=== PATIENT | male | born 1980 | race Caucasian/White ===

== ENCOUNTER 2016-07-10 20:14 | Inpatient (IN) | payer BC, OTHER ==
[~2016-07-10] VITALS: Ht 175.3 cm; Wt 61.2 kg
[~2016-07-10 20:14] MED LIST: DICY20TA28 PO; DIPH50CA37 PO; Gabapentin PO; HYDR-3895 PO
[2016-07-10 20:54] VITALS: BP 125/86
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
[2016-07-10] MEDS ORDERED: MIRALAX 17 GM POWD.PACK PO PRN (22:15)
[2016-07-10] MEDS ORDERED: LORAZEPAM 2 MG/1 ML VIAL IM PRN (22:15)
[2016-07-10] MEDS ORDERED: ONDANSETRON ODT 4 MG TAB.RAPDIS SL PRN (22:15)
[2016-07-10] MEDS ORDERED: MAGNESIUM HYDROXIDE 30 ML LIQUID UDC PO PRN (22:15)
[2016-07-10] MEDS ORDERED: HYDROXYZINE PAMOATE 25 MG CAPSULE PO PRN (22:15)
[2016-07-10] MEDS ORDERED: CLONIDINE HCL 0.1 MG TABLET PO PRN (22:15)
[2016-07-10] MEDS ORDERED: LOPERAMIDE HCL 2 MG CAPSULE PO PRN ×2 (22:15)
[2016-07-10] MEDS ORDERED: PROMETHAZINE HCL 25 MG/1 ML VIAL IM PRN (22:15)
[2016-07-10] MEDS ORDERED: THIAMINE HCL 200 MG/2 ML VIAL IM ONE (22:15)
[2016-07-10] MEDS ORDERED: MAG HYDROX/AL HYDROX/SIMETH 30 ML LIQUID UDC PO PRN (22:15)
[2016-07-10] MEDS ORDERED: ACETAMINOPHEN 325 MG TABLET PO PRN (22:15)
[2016-07-10] MEDS ORDERED: IBUPROFEN 600 MG TABLET PO PRN (22:15)
[2016-07-10] MEDS ORDERED: LORAZEPAM 1 MG TABLET PO PRN (22:15)
[2016-07-10] MEDS ORDERED: diphenhydrAMINE 50 MG CAPSULE PO PRN (22:15)
[2016-07-10] MEDS ORDERED: DICYCLOMINE HCL 20 MG TABLET PO PRN (22:15)
[2016-07-10] MEDS ORDERED: THIAMINE HCL 200 MG/2 ML VIAL ONE (22:26)
[2016-07-10] MEDS: LORAZEPAM 1 MG TABLET PO PRN (22:29)
--- NOTE | 2016-07-10 22:29 | NUR ---
PRN ATIVAN/B1 INJ ADMINISTRATION PATIENT C/O ANXIETY, IRRITABILITY, MILD AGITATION, SWEATING, CHILLS. RESTLESSNESS . CIWA 8. ATIVAN GIVEN AND B1 INJ GIVEN ON LEFT DELTOID. WILL MONITOR FOR EFFECTIVENESS
[2016-07-10] MEDS ORDERED: LORAZEPAM 1 MG TABLET ONE (22:36)
[2016-07-10 23:12] LABS: *AMPHETAMINE, URINE POSITIVE (NEGATIVE); *BARBITURATE, URINE NEGATIVE (NEGATIVE); *CANNABINOID, URINE POSITIVE (NEGATIVE); *COCCAINE, URINE NEGATIVE (NEGATIVE); *OPIATE, URINE POSITIVE (NEGATIVE); *PHENCYCLIDINE SCREEN,URINE NEGATIVE (NEGATIVE)
[2016-07-10 23:24] LABS: BASOPHILS # (AUTO) 0.1 K/uL (0.0-0.2); BASOPHILS % (AUTO) 1.2 % (0.0-2.0); EOSINOPHILS # (AUTO) 0.3 K/uL (0.0-0.7); EOSINOPHILS % (AUTO) 3.5 % (0.0-7.0); HEMATOCRIT 41.5 % (40.0-50.0); HEMOGLOBIN 14.6 g/dL (14.0-18.0); LYMPHOCYTES # (AUTO) 2.5 K/uL (0.8-4.8); LYMPHOCYTES % (AUTO) 31.7 % (20.5-51.5); MEAN CORPUSCULAR HEMOGLOBIN 31.4 uug (27.0-31.0); MEAN CORPUSCULAR HGB CONC 35 g/dL (32.0-37.0); MONOCYTES # (AUTO) 0.5 K/uL (0.1-1.30); MONOCYTES % (AUTO) 5.9 % (0.0-11.0); NEUTROPHILS # (AUTO) 4.4 K/uL (1.8-8.9); NEUTROPHILS % (AUTO) 57.7 % (38.5-71.5); PLATELET COUNT (AUTO) 211 K/uL (150-450); RED BLOOD CELL COUNT(AUTO) 4.67 MIL/uL (4.70-6.10); RED CELL DISTRIBUTION WIDTH 12.5 % (11.5-14.5); WHITE BLOOD COUNT (AUTO) 7.8 K/uL (4.0-11.2)
--- NOTE | 2016-07-10 23:29 | NUR ---
ATIVAN RE-ASSESSMENT PATIENT STATES ATIVAN HELPFUL AND EFFECTIVE. PATIENT ANXIETY SUBSIDED. WILL CONTINUE TO MONITOR.
[2016-07-10 23:31] LABS: ALBUMIN 3.8 g/dL (3.4-5.0); BILIRUBIN,TOTAL 0.9 mg/dL (0.2-1.0); CALCIUM 7.9 mg/dL (8.5-10.1); CREATININE 0.8 mg/dL (0.6-1.3); MAGNESIUM 1.7 mg/dL (1.8-2.4); POTASSIUM 3.2 mmol/L (3.5-5.1); TOTAL PROTEIN, SERUM 7.5 g/dL (6.4-8.2)
[2016-07-10 23:42] LABS: THYROID STIMULATING HORMONE 1.063 mIU/mL (0.358-3.740)
[2016-07-11] VITALS: BP 125/74
[2016-07-11 00:12] LABS: HIV-1 p24 ANTIGEN NON REACTIVE (NONREACTIVE); HIV-1/2 ANTIBODY NON REACTIVE (NONREACTIVE)
--- NOTE | 2016-07-11 00:15 | NUR ---
MAG OX AND POTASSIUM CHLORIDE REFUSED PATIENT'S MAGNESIUM LEVEL 1.7 AND POTASSIUM CHLORIDE 3.3. PATIENT REFUSED TO TAKE MAG OX AND POTASSIUM CHLORIDE. EDUCATE RISKS/BENEFITS . STILL REFUSED. Addendum: 07/11/16 at 0549 by BRITTNEY LEWIS LVN POTASSIUM LEVEL 3.2
[2016-07-11] MEDS ORDERED: POTASSIUM CHLORIDE 20 MEQ TAB.PRT.SR ONE (00:19)
[2016-07-11] MEDS ORDERED: MAGNESIUM OXIDE 400 MG TABLET ONE (00:20)
[2016-07-11] MEDS: POTASSIUM CHLORIDE 20 MEQ TAB.PRT.SR PO ONE ×2 (00:25→00:31)
[2016-07-11] MEDS: MAGNESIUM OXIDE 400 MG TABLET PO ONE ×2 (00:25→00:31)
[2016-07-11 04:00] VITALS: BP 124/82
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
--- NOTE | 2016-07-11 07:35 | NUR ---
Start of shift Endorsement received from nightshift nurse. Pt is a 35 y/o male admitted for Heroin, alcohol and Xanax dependence. Pt has been placed under observation and symptoms are being treated by PRN medications.. Pt is mildly withdrawing AEB CIWA 1. Pt received PRN Ativan. Pt reports sleeping 6 hours . VS WNL, Full Code. PT is alert and oriented x4. Pt is in STABLE condition at this time. Remains compliant with medication and diet regimen. All needs have been met, All safety measures in place per hospital policy. Bed in lowest position, side rails up x2, call-light within reach. Will continue to monitor
[2016-07-11] MEDS ORDERED: POTASSIUM CHLORIDE 20 MEQ TAB.PRT.SR PO ONE (08:00)
[2016-07-11] MEDS ORDERED: MAGNESIUM OXIDE 400 MG TABLET PO ONE (08:00)
[2016-07-11] MEDS: THIAMINE HCL 100 MG TABLET PO SCH (08:56)
[2016-07-11] MEDS: FOLIC ACID 1 MG TABLET PO SCH (08:56)
[2016-07-11] MEDS: GABAPENTIN 300 MG CAPSULE PO SCH ×3 (08:56→20:47)
[2016-07-11] MEDS: MULTIVITAMINS,THERAPEUTIC TABLET PO SCH (08:56)
[2016-07-11] MEDS ORDERED: PNEUMOCOCCAL 23-VAL P-SAC VAC 0.5 ML VIAL IM ONE (09:00)
[2016-07-11] MEDS ORDERED: TUBERCULIN,PURIF.PROT.DERIV. 5 TU/0.1 ML TEST ID ONE (09:00)
[2016-07-11] MEDS ORDERED: INFLUENZA VACCINE 0.5 ML DISP.SYRIN IM ONE (09:00)
[2016-07-11 09:04] VITALS: BP 116/74
[2016-07-11] MEDS: LORAZEPAM 1 MG TABLET PO PRN (09:05)
--- NOTE | 2016-07-11 09:05 | NUR ---
PRN Medications Administered PNR Ativan 1mg for CIWA 12 per MD orders and Zofran for nausea reported by pt.
--- NOTE | 2016-07-11 10:00 | NUR ---
Medication re-assessment Medications were effective, pt reports relief from anxiety and nausea.
[2016-07-11 12:00] VITALS: BP 128/87
[2016-07-11] MEDS ORDERED: LORAZEPAM 1 MG TABLET PO PRN ×2 (14:30)
[2016-07-11 16:00] VITALS: BP 122/81
--- NOTE | 2016-07-11 19:00 | NUR ---
End of Shift Endorsement given to nightshift nurse. Pt is a 35 y/o male admitted for Heroin, alcohol and Xanax dependence. Pt has been placed under observation and symptoms are being treated by PRN medications.. Pt is mildly withdrawing AEB CIWA 7. Pt received PRN Ativan at 0905 for CIWA 12 as well as Zofran for nausea. Pt participated in groups and activities. Intake: 1791, void x3, BM x0. . VS WNL, Full Code. PT is alert and oriented x4. Pt is in STABLE condition at this time. Remains compliant with medication and diet regimen. All needs have been met, All safety measures in place per hospital policy. Bed in lowest position, side rails up x2, call-light within reach. Will continue to monitor
[2016-07-11 20:00] VITALS: BP 124/80
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
--- NOTE | 2016-07-11 20:48 | NUR ---
PRN ATIVAN ADMINISTRATION PATIENT C/O ANXIETY, SWEATING, CHILLS, TREMORS, OBSERVED WITH FLUSHED FACE, IRRITABILITY AND MILD AGITATION . CIWA 10. PRN ATIVAN GIVEN. WILL MONITOR FOR EFFECTIVENESS
--- NOTE | 2016-07-11 21:48 | NUR ---
LADONNA ATIVAN RE-ASSESSMENT PATIENT STATES ATIVAN HELPFUL AND EFFECTIVE. WILL CONTINUE TO MONITOR. Addendum: 07/12/16 at 0536 by BRITTNEY LEWIS LVN IRAIDA Heath
--- NOTE | 2016-07-12 | NUR ---
VS/CIWA REFUSED PATIENT REFUSED VS . UNABLE TO COMPLETE CIWA ASSESSMENT. RESPIRATION EVEN AND UNLABORED. RR 15. SAFETY MEASURES IN PLACE. CALL LIGHT IN REACH. WILL CONTINUE TO MONITOR.
--- NOTE | 2016-07-12 04:00 | NUR ---
VS/CIWA REFUSED PATIENT REFUSED VS . UNABLE TO COMPLETE CIWA ASSESSMENT. RESPIRATION EVEN AND UNLABORED. RR 14. NO S/S OF DISTRESS. SAFETY MEASURES IN PLACE. CALL LIGHT IN REACH. WILL CONTINUE TO MONITOR.
--- NOTE | 2016-07-12 07:05 | NUR ---
Start of shift Endorsement received from nightshift nurse. Pt is a 35 y/o male admitted for Heroin, alcohol and Xanax dependence. Pt has been placed under observation and symptoms are being treated by PRN medications.. Pt is mildly withdrawing AEB CIWA 1. Pt received PRN Ativan. Pt reports sleeping 7 hours . VS WNL, Full Code. PT is alert and oriented x4. Pt is in STABLE condition at this time. Remains compliant with medication and diet regimen. All needs have been met, All safety measures in place per hospital policy. Bed in lowest position, side rails up x2, call-light within reach. Will continue to monitor
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
[2016-07-12 08:05] VITALS: BP 102/69
[2016-07-12] MEDS: MULTIVITAMINS,THERAPEUTIC TABLET PO SCH (08:48)
[2016-07-12] MEDS: FOLIC ACID 1 MG TABLET PO SCH (08:48)
[2016-07-12] MEDS: GABAPENTIN 300 MG CAPSULE PO SCH ×3 (08:48→20:49)
[2016-07-12] MEDS: THIAMINE HCL 100 MG TABLET PO SCH (08:48)
[2016-07-12 09:29] LABS: CALCIUM 8.3 mg/dL (8.5-10.1); CREATININE 0.9 mg/dL (0.6-1.3); MAGNESIUM 1.8 mg/dL (1.8-2.4); POTASSIUM 4.8 mmol/L (3.5-5.1)
--- NOTE | 2016-07-12 10:18 | NUR ---
AMY AND I TESTING PCS
[2016-07-12 11:39] LABS: HCV AB >11.0 s/co ratio (0.0-0.9); HEPATITIS B CORE AB, IgM Negative (Negative); HEPATITIS B SURFACE AG Negative (Negative)
[2016-07-12 12:00] VITALS: BP 105/62
[2016-07-12 16:00] VITALS: BP 127/87
--- NOTE | 2016-07-12 19:20 | NUR ---
End of Shift Endorsement given to nightshift nurse. Pt is a 35 y/o male admitted for Heroin, alcohol and Xanax dependence. Pt has been placed under observation and symptoms are being treated by PRN medications.. Pt is mildly withdrawing AEB CIWA 1. Pt did not receive any PRN medications. Pt is expected to be discharged on 07/13/16. All documentation has been completed. Pt participated in groups and activities. Intake: 1966, void x4, BM x0. . VS WNL, Full Code. PT is alert and oriented x4. Pt is in STABLE condition at this time. Remains compliant with medication and diet regimen. All needs have been met, All safety measures in place per hospital policy. Bed in lowest position, side rails up x2, call-light within reach. Will continue to monitor
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
[2016-07-12 20:58] VITALS: BP 125/86
--- NOTE | 2016-07-13 | NUR ---
Vitals/CIWA deferred Patient refused vitals at this time. Patient asleep in bed. No shortness of breath noted. Respiration even & unlabored. Safety precautions are in place. Will continue to monitor.
[2016-07-13] MEDS ORDERED: HYDR-3895 PO (00:18)
[2016-07-13] MEDS ORDERED: DIPH50CA37 PO (00:18)
[2016-07-13] MEDS ORDERED: DICY20TA28 PO (00:18)
[2016-07-13] MEDS ORDERED: Gabapentin PO (00:18)
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
--- NOTE | 2016-07-13 07:30 | NUR ---
START OF SHIFT NOTE: Received report from night court magistrate nurse. Patient is a 35 y.o male admitted on 07/10/16 for Heroin/Alcohol & Xanax dependence. Pt to be discharged this AM. Pt is alert and oriented X4. Color good, skin warm and dry. Respirations even and unlabored. Pt resting in bed at this time. Safety precautions observed. Call light within reach.
[2016-07-13] MEDS: FOLIC ACID 1 MG TABLET PO SCH (08:23)
[2016-07-13] MEDS: MULTIVITAMINS,THERAPEUTIC TABLET PO SCH (08:23)
[2016-07-13] MEDS: GABAPENTIN 300 MG CAPSULE PO SCH (08:23)
[2016-07-13] MEDS: THIAMINE HCL 100 MG TABLET PO SCH (08:23)
--- NOTE | 2016-07-13 08:30 | NUR ---
VSS Discharge papers signed. No home meds
[2016-07-13 09:08] LABS: *AMPHETAMINE, URINE POSITIVE (NEGATIVE); *BARBITURATE, URINE NEGATIVE (NEGATIVE); *CANNABINOID, URINE NEGATIVE (NEGATIVE); *COCCAINE, URINE NEGATIVE (NEGATIVE); *OPIATE, URINE NEGATIVE (NEGATIVE); *PHENCYCLIDINE SCREEN,URINE NEGATIVE (NEGATIVE)
[2016-07-13 09:18] LABS: VIT D, 25-HYDROXY 42.3 ng/mL (30.0-100.0)
--- NOTE | 2016-07-13 09:35 | NUR ---
Pt discharged in stable condition with all valuables and belongings. No home meds. Pt denies SI/HI. To [employer] [facility] [employer] private car.
== END 2016-07-13 09:35 | disposition other institution (70) | DRG 895 ==
LOC: SRC 20:36
PROVIDERS: ADMIT Internal Medicine; ATTEND Internal Medicine
PROC: HZ2ZZZZ Detoxification Services for Substance Abuse Treatment (ICD-10-PCS; principal; 2016-07-10)
PROC: HZ41ZZZ Group Counseling for Substance Abuse Treatment, Behavioral (ICD-10-PCS; 2016-07-11)
DX: F10.220 Alcohol dependence with intoxication, uncomplicated (principal); F13.20 Sedative, hypnotic or anxiolytic dependence, uncomplicated; F10.230 Alcohol dependence with withdrawal, uncomplicated; F11.23 Opioid dependence with withdrawal; Y90.2 Blood alcohol level of 40-59 mg/100 ml; E87.6 Hypokalemia; E83.51 Hypocalcemia; E83.42 Hypomagnesemia; F17.200 Nicotine dependence, unspecified, uncomplicated; F41.9 Anxiety disorder, unspecified; F15.229 Other stimulant dependence with intoxication, unspecified; F12.90 Cannabis use, unspecified, uncomplicated; B19.20 Unspecified viral hepatitis C without hepatic coma; Z86.69 Personal history of other diseases of the nervous system and sense organs
CPT/HCPCS: 36415; 70030-TC; 71010; 80307; 80324; 80349; 80361; 82306; 82330; 83690; 83735; 84443; 85025; 86592; 86705; 86803; 87340; 87521; 87806; A4663; G6040-TC; J3411; Q0162

== ENCOUNTER 2016-09-27 16:27 | Inpatient (IN) | payer BC, OTHER ==
[~2016-09-27] VITALS: Ht 175.3 cm; Wt 62.6 kg
[2016-09-28] MEDS ORDERED: MAGNESIUM HYDROXIDE 30 ML LIQUID UDC PO PRN (13:30)
[2016-09-28] MEDS ORDERED: MIRALAX 17 GM POWD.PACK PO PRN (13:30)
[2016-09-28] MEDS ORDERED: IBUPROFEN 600 MG TABLET PO PRN (13:30)
[2016-09-28] MEDS ORDERED: MAG HYDROX/AL HYDROX/SIMETH 30 ML LIQUID UDC PO PRN (13:30)
[2016-09-28] MEDS ORDERED: METHOCARBAMOL 750 MG TABLET PO PRN (13:30)
[2016-09-28] MEDS ORDERED: DICYCLOMINE HCL 20 MG TABLET PO PRN (13:30)
[2016-09-28] MEDS ORDERED: ONDANSETRON 4 MG/2 ML VIAL IM PRN (13:30)
[2016-09-28] MEDS ORDERED: LOPERAMIDE HCL 2 MG CAPSULE PO PRN ×2 (13:30)
[2016-09-28] MEDS ORDERED: HYDROXYZINE PAMOATE 25 MG CAPSULE PO PRN (13:30)
[2016-09-28] MEDS ORDERED: ACETAMINOPHEN 325 MG TABLET PO PRN (13:30)
[2016-09-28] MEDS ORDERED: CLONIDINE HCL 0.1 MG TABLET PO PRN (13:30)
[2016-09-28] MEDS ORDERED: LORAZEPAM 2 MG/1 ML VIAL IM PRN (13:30)
[2016-09-28] MEDS ORDERED: THIAMINE HCL 200 MG/2 ML VIAL IM ONE (13:30)
[2016-09-28] MEDS ORDERED: diphenhydrAMINE 50 MG CAPSULE PO PRN (13:30)
[2016-09-28] MEDS ORDERED: LORAZEPAM 1 MG TABLET PO PRN ×2 (13:30)
[2016-09-28] MEDS ORDERED: ONDANSETRON ODT 4 MG TAB.RAPDIS SL PRN (13:30)
[2016-09-28] MEDS ORDERED: BUPRENORPHINE HCL 2 MG TAB.SUBL SL PRN (13:30)
--- NOTE | 2016-09-28 14:15 | NUR ---
PREADMISSION ASSESSMENT Intake interview done at 1400. Reviewed patients substance history and medical history. Patient is alert and orientated but occasionally would close his eyes during assessment. Unit rules were explained to the patient. Will continue the admission process when the patient arrives on unit.
[2016-09-28 14:19] VITALS: BP 111/76
[2016-09-28] MEDS: GABAPENTIN 300 MG CAPSULE PO SCH ×2 (15:00→21:10)
[2016-09-28 15:30] LABS: ALANINE AMINOTRANSFERASE 46 U/L (16-63); ALKALINE PHOSPHATASE 62 U/L (50-136); ASPARTATE AMINOTRANSFERASE 24 U/L (15-37); BILIRUBIN,TOTAL 1.5 mg/dL (0.2-1.0); CARBON DIOXIDE 31 mmol/L (21-32); CHLORIDE 101 mmol/L (98-107); GLUCOSE 101 mg/dL (74-106); MAGNESIUM 2.1 mg/dL (1.8-2.4); POTASSIUM 4.2 mmol/L (3.5-5.1); TOTAL PROTEIN, SERUM 8.2 g/dL (6.4-8.2); UREA NITROGEN, BLOOD 11 mg/dL (7-18)
[2016-09-28 15:43] LABS: THYROID STIMULATING HORMONE 0.732 mIU/mL (0.358-3.740)
--- NOTE | 2016-09-28 15:55 | NUR ---
ADMISSION NOTE Patient is a 36 year old male admitted to [facility] on 09/28/16 at 1425. pat is under [facility] of Dr. Zavala for opiate and benzo dependence. Pt denies suicidal and homicidal ideations at this time. Pt was hospitalized last month here at [facility]. pt denies chest pain and SOB. pt reports using Heroin, Methamphetamine, and xanax. upon assessment pt's skin is intact. CIWA 3 and COWS 7upon admission. Patient is allergic to tomatoes. pt is alert and orientated but closes eyes occasionally. Able to answer questions necessary for the admission process. pt is full code. VS WNL, regular diet. patient denies having seizures in the past. pt denies having a PCP. Breathing is even and unlabored, Spo2 100%, RA. pt states bowel habits are normal. Pt's gait is steady. Pt smokes approximately [address] Zavala has been notified, and has placed client under observation. all needs have been met. pt has been orientated to the room and the unit. All safety measures in place per hospital policy. Bed in lowest postion, side rails up X2, call light within reach. will continue to monitor patient. SUBSTANCE ABUSE -xanax 1.5 bar 3-4 times a week for the past 13 years, last used 09/28/16 -Methamphetamine- 1-2 grams daily for the past 2 years, last used 09/28/16 -Heroin 2 grams daily for the past 10 years, last used 09/28/16
[2016-09-28 15:58] LABS: BASOPHILS # (AUTO) 0.1 K/uL (0.0-8.0); BASOPHILS % (AUTO) 1.6 % (0.0-2.0); EOSINOPHILS # (AUTO) 0.3 K/uL (0.0-0.7); EOSINOPHILS % (AUTO) 3.4 % (0.0-7.0); HEMOGLOBIN 15.6 G/DL (14.0-18.0); LYMPHOCYTES # (AUTO) 3.2 K/UL (0.8-4.8); LYMPHOCYTES % (AUTO) 39.4 % (20.5-51.5); MEAN CORPUSCULAR HGB CONC 35 g/dL (32.0-37.0); MEAN CORPUSCULAR VOLUME 89.2 FL (82.0-92.0); MONOCYTES # (AUTO) 0.9 K/UL (0.1-1.30); MONOCYTES % (AUTO) 11.1 % (0.0-11.0); NEUTROPHILS # (AUTO) 3.7 K/UL (1.8-8.9); NEUTROPHILS % (AUTO) 44.5 % (38.5-71.5); PLATELET COUNT (AUTO) 248 K/UL (150-450); RED BLOOD CELL COUNT(AUTO) 5.05 MIL/UL (4.7-6.1); WHITE BLOOD COUNT (AUTO) 8.2 K/UL (4.0-11.2)
--- NOTE | 2016-09-28 15:59 | NUR ---
PRN Pt states he feels nauseous. Dee james prn per MD order given and tolerated well.
[2016-09-28 16:00] VITALS: BP 115/78
[2016-09-28 16:21] LABS: ETHANOL < 3 MG/DL (0-0)
--- NOTE | 2016-09-28 16:59 | NUR ---
PRN EVAL Pt states nausea has stopped.
--- NOTE | 2016-09-28 19:30 | NUR ---
START OF SHIFT Patient is a 36 year old male admitted to [facility] on 09/28/16, for opiate and benzo dependence. Pt reports using Heroin, Methamphetamine, and xanax. CIWA 3 and COWS 7 upon admission. Patient is allergic to tomatoes. pt is alert and orientated x 3 , is full code, on regular diet. Patient denies having seizures in the past. Breathing is even and unlabored, all needs have been met. All safety measures in place per hospital policy. Bed in lowest position, side rails up X2, call light within reach. will continue to monitor patient.
[2016-09-28 20:00] VITALS: BP 109/76
[2016-09-28] MEDS ORDERED: GABAPENTIN 300 MG CAPSULE PO SCH (21:00)
[2016-09-29] VITALS: BP 130/90
[2016-09-29 04:00] VITALS: BP 120/90
--- NOTE | 2016-09-29 06:44 | NUR ---
END OF SHIFT Patient is a 36 year old male admitted to [facility] on 09/28/16, for opiate and benzo dependence. Pt reports using Heroin, Methamphetamine, and Xanax. Last CIWA=2. Patient is allergic to tomatoes; alert and orientated x 3 , is full code; regular diet. patient denies having seizures in the past. Breathing is even and unlabored, all needs have been met. No PRN meds given last night. Pt slept 9 hrs last night; fluid intake was 355 mls; did not void; still unable to get urine specimen for drug screen. All safety measures in place per hospital policy. Bed in lowest position, side rails up X2, call light within reach. will continue to monitor.
[2016-09-29 08:00] VITALS: BP 138/82
--- NOTE | 2016-09-29 08:00 | NUR ---
START OF SHIFT: RECEIVED PT A/O X 4. HE PROVIDED UDS. HE C/O ANXIETY,BODY ACHES,RUNNY NOSE TEARING EYES ,CHILLS AND SWEATS. COWS 14 CIWA 5. INITIATED 5 DAY SUBUTEX AND ATIVAN TAPER PER MD ORDERS. ENCOURAGED INCREASED FLUIDS TO ASSIST IN FACILITATING DETOX PROCESS. PPD PLANTED TO LFA. ENCOURAGED REST TODAY. WILL CONTINUE TO MONITOR AND PROVIDE SAFE AND SUPPORTIVE ENVIRONMENT.
[2016-09-29] MEDS: THIAMINE HCL 100 MG TABLET PO SCH (08:11)
[2016-09-29] MEDS: GABAPENTIN 300 MG CAPSULE PO SCH ×3 (08:11→20:45)
[2016-09-29] MEDS: LORAZEPAM 1 MG TABLET PO SCH ×4 (08:11→20:45)
[2016-09-29] MEDS: MULTIVITAMINS,THERAPEUTIC TABLET PO SCH (08:11)
[2016-09-29] MEDS: FOLIC ACID 1 MG TABLET PO SCH (08:11)
[2016-09-29] MEDS: DOCUSATE SODIUM 250 MG CAPSULE PO SCH (08:12)
[2016-09-29] MEDS: BUPRENORPHINE HCL 2 MG TAB.SUBL SL SCH ×4 (08:12→20:45)
[2016-09-29 08:46] LABS: *AMPHETAMINE, URINE POSITIVE (NEGATIVE); *BARBITURATE, URINE NEGATIVE (NEGATIVE); *CANNABINOID, URINE NEGATIVE (NEGATIVE); *COCCAINE, URINE POSITIVE (NEGATIVE); *OPIATE, URINE POSITIVE (NEGATIVE); *PHENCYCLIDINE SCREEN,URINE NEGATIVE (NEGATIVE)
[2016-09-29] MEDS ORDERED: 5 DAY TAPER OF LORAZEPAM -SERENITY PROTOCOL PO PRN (09:00)
[2016-09-29] MEDS ORDERED: 5 DAY TAPER BUPRENORPHINE -SERENITY PROTOCOL SL PRN (09:00)
[2016-09-29] MEDS ORDERED: TUBERCULIN,PURIF.PROT.DERIV. 5 TU/0.1 ML TEST ID ONE (09:00)
[2016-09-29 12:00] VITALS: BP 100/60
--- NOTE | 2016-09-29 14:00 | NUR ---
1200 COWS AND CIWA DEFERRED PT IS ASLEEP. HELD 1300 MEDS FOR SAME REASON. RESPIRATIONS EVEN AND UNLABORED. CALL HOOD IN REACH. BED LOCKED AND IN LOWEST POSITION. WILL CONTINUE TO MONITOR.
[2016-09-29 16:00] VITALS: BP 138/82
--- NOTE | 2016-09-29 18:49 | NUR ---
END OF SHIFT: PT STARTED ON ATIVAN SUBUTEX TAPER. PT C/O BODY ACHES,CHILLS,RUNNY NOSE, SWEATS,ANXIETY AND FATIGUE THIS AM AND DETOX MEDS WERE EFFECTIVE.LAST COWS 8 CIWA 5. PPD PLANTED TO LFA. HE SLEPT THIS AFTERNOON AND 1300 MEDS HELD. 1300 COWS AND CIWA DEFERRED. PT REQUESTED AN EXTRA DOSE OF SUBUTEX AFTER HIS 1700 DOSE AND STATED THAT THE DOSE WAS NOT EFFECTIVE. MD DENIED REQUEST. PRN MOTRIN AND PRN ROBAXIN GIVEN AT END OF SHIFT.WILL ENDORSE EFFECTIVENESS TO NIGHT NURSE. WILL PASS ON SHIFT REPORT.
--- NOTE | 2016-09-29 19:15 | NUR ---
START OF SHIFT Received 36 year old male patient admitted on 09/28/16 for Xanax, Heroin and Meth dependency. Pt is full code with allergy to tomato. He reports a PMHx of seizure. He reports using Xana 1.5 bar 3-4 times per week for 13 years. Last dose was on 09/28/16. Heroin 2 gram daily for 10 years. Last dose was 09/28/16. And meth 1-2 gram daily for 2 years. Last dose as on 09/28/16. Pt placed on 5 day Ativan and 5 day Subutex taper started on 09/29/16. Per endorsement, pt received PRN Motrin and Robaxin at 1830. Will monitor effectiveness of medication. Pt is alert and oriented x4, breathing is even and unlabored. Safety measures in place. Will continue to monitor.
--- NOTE | 2016-09-29 19:30 | NUR ---
PRN REASSESSMENT Pt reports that PRN Motrin and Robaxin ineffective. Pt still complains of 7/10 body aches related to w/d. Will continue to monitor.
[2016-09-29 20:00] VITALS: BP 122/83
[2016-09-30] VITALS: BP 115/78
[2016-09-30 04:00] VITALS: BP 118/84
--- NOTE | 2016-09-30 07:04 | NUR ---
END OF SHIFT Pt is a 36 year old male patient admitted on 09/28/16 for Xanax, Heroin and Meth dependency. Pt is full code with allergy to tomato. Pt continues on 5 day Ativan and 5 day Subutex taper started on 09/29/16 and tolerating well. Pt did not receive or request PRN medications. He slept a total of 5 hrs, Intake: 1060mL, Void: x2, BM: 0, COWS;3, CIWA:3. Pt remains alert and oriented x4, breathing is even and unlabored. Safety measures in place. Endorsed to oncoming shift.
[2016-09-30 07:32] LABS: BILIRUBIN,DIRECT 0.1 mg/dL (0.0-0.2); BILIRUBIN,TOTAL 0.9 mg/dL (0.2-1.0); TOTAL PROTEIN, SERUM 8.2 g/dL (6.4-8.2)
[2016-09-30 08:00] VITALS: BP 123/88
--- NOTE | 2016-09-30 08:00 | NUR ---
START OF SHIFT NOTE Received report from night nurse, 36 year old male patient admitted on 09/28/16 for Xanax, Heroin and Meth dependency. Pt is full code with allergy to tomato. Pt reports a PMH of seizure. Pt reports using Xanax 1.5 bar 3-4 times per week for 13 years. Last dose was on 09/28/16. Heroin 2 gram daily for 10 years. Last dose was 09/28/16, meth 1-2 gram daily for 2 years. Last dose as on 09/28/16. Pt placed on 5 day Ativan and 5 day Subutex taper started on 09/29/16. Per endorsement pt did not receive any PRN medication. Last CIWA-3, COWS-3, slept for 5 hours. Received pt resting in her room in stable condition, breathing normal no SOB noted. Skin intact warm and dry to touch. All safety measures in place, Call light within reach. Will cont to monitor.
[2016-09-30] MEDS: MULTIVITAMINS,THERAPEUTIC TABLET PO SCH (08:39)
[2016-09-30] MEDS: FOLIC ACID 1 MG TABLET PO SCH (08:39)
[2016-09-30] MEDS: DOCUSATE SODIUM 250 MG CAPSULE PO SCH (08:39)
[2016-09-30] MEDS: LORAZEPAM 1 MG TABLET PO SCH ×3 (08:39→20:24)
[2016-09-30] MEDS: BUPRENORPHINE HCL 2 MG TAB.SUBL SL SCH ×3 (08:39→20:23)
[2016-09-30] MEDS: GABAPENTIN 300 MG CAPSULE PO SCH ×3 (08:39→20:23)
[2016-09-30] MEDS: THIAMINE HCL 100 MG TABLET PO SCH (08:39)
[2016-09-30 12:00] VITALS: BP 119/76
[2016-09-30 16:00] VITALS: BP 135/91
--- NOTE | 2016-09-30 17:15 | NUR ---
Therapist advised client of group times. Client did not attend groups because he is tired.
--- NOTE | 2016-09-30 18:52 | NUR ---
END OF SHIFT NOTE Gave report to night nurse, 36 year old male patient admitted on 09/28/16 for Xanax, Heroin and Meth dependence. Pt is full code with allergy to tomato. Pt reports a PMH of seizure. Pt reports using Xanax 1.5 bar 3-4 times per week for 13 years. Last dose was on 09/28/16. Heroin 2 gram daily for 10 years. Last dose was 09/28/16, meth 1-2 gram daily for 2 years. Last dose as on 09/28/16. Pt placed on 5 day Ativan and 5 day Subutex taper started on 09/29/16 tolerating well. Vital signs remained WNL. Encourage pt to attend groups and activities to learn new coping skills with good verbal understanding. No PRN given during shift. All needs attended. Safety measures in place, call light within reach. Pt endorsed to night nurse in stable condition.
--- NOTE | 2016-09-30 19:15 | NUR ---
START OF SHIFT Received 36 year old male patient admitted on 09/28/16 for Xanax, Heroin and Meth dependency. Pt is full code with allergy to tomato. He reports a PMHx of seizure. He reports using Xanax 1.5 bar 3-4 times per week for 13 years. Last dose was on 09/28/16. Heroin 2 gram daily for 10 years. Last dose was 09/28/16. And meth 1-2 gram daily for 2 years. Last dose as on 09/28/16. Pt placed on 5 day Ativan and 5 day Subutex taper started on 09/29/16. Pt currently on day 2/5 and tolerating well. Per endorsement, pt did not receive or request PRN medications. Pt is alert and oriented x4, breathing is even and unlabored. Safety measures in place. Will continue to monitor.
[2016-09-30 20:00] VITALS: BP 134/89
[2016-10-01] VITALS: BP 128/72
[2016-10-01 04:00] VITALS: BP 120/78
[2016-10-01 04:06] LABS: HEPATITIS B SURFACE AG Negative (Negative)
--- NOTE | 2016-10-01 07:02 | NUR ---
END OF SHIFT Pt is 36 year old male patient admitted on 09/28/16 for Xanax, Heroin and Meth dependency. Pt is full code with allergy to tomato. Pt reports a PMHx of seizure. Pt continues on 5 day Ativan and 5 day Subutex taper started on 09/29/16. Pt is currently on day 3 and tolerating well. Pt did not receive or request PRN medications. He slept a total of 6 hrs, Intake:1240mL, Void: x3, BMx1, COWS:1, CIWA:2. Pt remains alert and oriented x4, breathing is even and unlabored. Pt is safe with bed locked in lowest position, side rails up x2 and call light within reach. Will endorse to oncoming shift.
--- NOTE | 2016-10-01 07:52 | NUR ---
Start of Shift Pt received from NOC RN during morning SBAR. Cycle Counter encountered pt in his room sitting at bedside getting VS taken, VS all WNL, with a pain rating of 4/10, although pt made no complaints of pain to service writer advisor. Pt is A/O x4 with no complaints at this time. Pt presented to [facility] with Heroin, Meth and Xanax dependence. Pt states a medical history significant for seizures. Pt also positive for Hepatitis c per lab results. Last CIWA 2 with last COWS 2 and no PRN medication administered on NOC. Per NOC nurse, pt slept 6 hours last evening. Will continue to monitor, support and encourage according to plan of care. All safety precautions in place.
[2016-10-01] MEDS: GABAPENTIN 300 MG CAPSULE PO SCH ×2 (08:09→14:20)
[2016-10-01] MEDS: FOLIC ACID 1 MG TABLET PO SCH (08:10)
[2016-10-01] MEDS: DOCUSATE SODIUM 250 MG CAPSULE PO SCH (08:10)
[2016-10-01] MEDS: MULTIVITAMINS,THERAPEUTIC TABLET PO SCH (08:10)
[2016-10-01] MEDS: THIAMINE HCL 100 MG TABLET PO SCH (08:10)
[2016-10-01 08:17] VITALS: BP 123/84
--- NOTE | 2016-10-01 08:20 | NUR ---
Change in COWS Wind Operations Supervisor entered COWS score on Subutex administration d/t re-assessment of pupils. Correct COWS of 8 noted on COWS assessment. Will continue to monitor, support and encourage according to plan of care.
[2016-10-01] MEDS ORDERED: LORAZEPAM 1 MG TABLET PO SCH ×2 (09:00→15:00)
[2016-10-01] MEDS ORDERED: BUPRENORPHINE HCL 2 MG TAB.SUBL SL SCH ×2 (09:00→15:00)
[2016-10-01 12:22] VITALS: BP 125/88
--- NOTE | 2016-10-01 15:27 | NUR ---
AMA - DISCHARGE Pt has decided to leave AMA. Staff attempted to educate pt on need for continued adherence to treatment plan. Pt was educated on risks and consequences of leaving AMA and continued to request discharge. Pt verbalized understanding the risks and consequences of leaving AMA. Dr. Miramontes on the unit and aware of discharge AMA. Last doses of medication were administered per Dr. Jacob order with pt agreeing to remain an additional half hour after administration before leaving. Pt states he will continue his detoxification at his girlfriends house and states, " I am over the difficult part and it will be more comfortable there." VS WNL, skin intact. Pt denies HI/SI or any psychiatric symptoms. Pt denies any acute withdrawal symptoms. Pt provided with list of community resources and all of pt's belongings were returned to pt. AMA forms explained and pt signed. Sporting Goods Sales Associate checked for home medications and none were brought to hospital. Pt left per ambulation at 1527.
--- NOTE | 2016-10-01 15:28 | NUR ---
Therapist encouraged client to participate in daily groups at 11am and 3:30pm. Client related that he would make an effort to attend the next group.
[2016-10-02] MEDS ORDERED: BUPRENORPHINE HCL 2 MG TAB.SUBL SL SCH ×2 (09:00)
[2016-10-02] MEDS ORDERED: LORAZEPAM 1 MG TABLET PO SCH ×2 (09:00)
[2016-10-03] MEDS ORDERED: BUPRENORPHINE HCL 2 MG TAB.SUBL SL SCH (09:00)
[2016-10-03] MEDS ORDERED: LORAZEPAM 1 MG TABLET PO SCH (09:00)
== END 2016-10-01 15:37 | disposition left against medical advice (07) | DRG 894 ==
LOC: SRC 09-28 12:18
PROVIDERS: ADMIT Internal Medicine; ATTEND Internal Medicine
PROC: HZ2ZZZZ Detoxification Services for Substance Abuse Treatment (ICD-10-PCS; principal; 2016-09-28)
PROC: HZ31ZZZ Individual Counseling for Substance Abuse Treatment, Behavioral (ICD-10-PCS; 2016-10-01)
DX: F11.23 Opioid dependence with withdrawal (principal); R17 Unspecified jaundice; F17.210 Nicotine dependence, cigarettes, uncomplicated; F13.220 Sedative, hypnotic or anxiolytic dependence with intoxication, uncomplicated; F15.220 Other stimulant dependence with intoxication, uncomplicated; F41.9 Anxiety disorder, unspecified; Z86.19 Personal history of other infectious and parasitic diseases
CPT/HCPCS: 36415; 80307; 83735; 84443; 85025; 86580; 86592; 86705; 86803; 87340; 87806; G0480; Q0162